=== PATIENT | male | born 1990 | race Caucasian/White ===

== ENCOUNTER 2016-05-17 08:11 | Emergency (ER) | payer MEDICARE ==
[~2016-05-17] VITALS: Ht 165.1 cm; Wt 61.2 kg
[2016-05-17 08:12] VITALS: BP 141/75; PULSE 103; RESP 16; TEMP 98.3; O2SAT 98
--- NOTE | 2016-05-17 08:12 | NUR ---
Pt placed in room 7 for MD starks for urinary symptoms. MD Cam at bedside.
[2016-05-17] MEDS ORDERED: NACL 0.9% 1,000 ML IV ONE (08:19)
[2016-05-17] MEDS ORDERED: ONDANSETRON HCL 4 MG/2 ML VIAL IVP ONE (08:30)
[2016-05-17] MEDS ORDERED: KETOROLAC TROMETHAMINE 30 MG VIAL IVP ONE (08:30)
[2016-05-17] MEDS ORDERED: PHEN95TA44 (08:35)
[2016-05-17 08:42] LABS: BASOPHILS # (AUTO) 0.1 K/uL (0.0-0.2); BASOPHILS % (AUTO) 1.1 % (0.0-2.0); EOSINOPHILS # (AUTO) 0.1 K/uL (0.0-0.4); EOSINOPHILS % (AUTO) 2.3 % (0.0-4.0); HEMATOCRIT 44.1 % (36-54); HEMOGLOBIN 15.3 g/dL (14.0-18.0); LYMPHOCYTES # (AUTO) 1.6 K/uL (1.0-5.5); LYMPHOCYTES % (AUTO) 34.2 % (20.5-51.5); MEAN CORPUSCULAR HEMOGLOBIN 33 pg (27-31); MEAN CORPUSCULAR HGB CONC 35 % (32-36); MEAN CORPUSCULAR VOLUME 94 fL (79.0-98.0); MONOCYTES # (AUTO) 0.4 K/uL (0.0-1.0); MONOCYTES % (AUTO) 8.7 % (1.7-9.3); NEUTROPHILS # (AUTO) 2.5 K/uL (1.8-7.7); NEUTROPHILS % (AUTO) 53.7 % (40.0-70.0); PLATELET COUNT (AUTO) 148 K/uL (130-430); WHITE BLOOD COUNT (AUTO) 4.7 K/uL (4.8-10.8)
[2016-05-17] MEDS ORDERED: IBUPROFEN 600 MG TABLET PO ONE (08:45)
[2016-05-17 08:53] LABS: CALCIUM 9.2 mg/dL (8.4-11.0); CREATININE 0.8 mg/dL (0.55-1.30)
[2016-05-17 08:54] LABS: BILIRUBIN,URINE NEGATIVE (NEGATIVE); BLOOD, URINE NEGATIVE (NEGATIVE); CLARITY/URINE CLEAR (CLEAR); COLOR,URINE YELLOW (YELLOW); GLUCOSE,URINE NEGATIVE (NEGATIVE); KETONES,URINE NEGATIVE (NEGATIVE); LEUKOCYTE ESTERASE ,URINE NEGATIVE (NEGATIVE); NITRITE, URINE POSITIVE (NEGATIVE); PH,URINE 6.5 (5.0-8.0); PROTEIN URINE NEGATIVE (NEGATIVE); UROBILINOGEN,URINE 0.2 (0.2-1.0)
[2016-05-17 08:57] LABS: ALBUMIN 4.3 g/dL (3.4-4.8); TOTAL BILIRUBIN 0.6 mg/dL (0.0-1.0); TOTAL PROTEIN, SERUM 7.5 g/dL (6.4-8.3)
--- NOTE | 2016-05-17 09:00 | NUR ---
Pt reassessed resting comfortably, no acute distress, no complaints at this time.
--- NOTE | 2016-05-17 09:28 | NUR ---
Patient given written and verbal discharge instructions and verbalizes understanding. ER MD discussed with patient the results and treatment provided. Given copies of tests performed in ER. Patient in stable condition. ID arm band removed. IV catheter removed intact and dressing applied, no active bleeding. Rx of Cipro given. Patient educated on pain management and to follow up with PMD. Pain Scale . Opportunity for questions provided and answered.
[2016-05-17 09:29] VITALS: BP 122/76; PULSE 70; RESP 16; TEMP 98; O2SAT 98
== END 2016-05-17 09:29 | disposition home or self-care (01) ==
LOC: SED 08:11
DX: N34.2 Other urethritis (principal)
CPT/HCPCS: 36415; 80053; 81003; 82150; 83690; 85025; 99284; J7030

== ENCOUNTER 2016-05-18 12:05 | Emergency (ER) | payer MEDICARE ==
[~2016-05-18] VITALS: Ht 162.6 cm; Wt 52.2 kg
[~2016-05-18 12:05] MED LIST: PHEN95TA44
[2016-05-18 12:14] VITALS: BP 151/77; PULSE 89; RESP 16; TEMP 97.8; O2SAT 99
--- NOTE | 2016-05-18 12:33 | NUR ---
placed in hallway. Dr. Cam examining pt
[2016-05-18 12:54] VITALS: BP 151/77; PULSE 89; RESP 16; TEMP 97.8; O2SAT 99
--- NOTE | 2016-05-18 12:54 | NUR ---
Patient given written and verbal discharge instructions and verbalizes understanding. ER MD discussed with patient the results and treatment provided. Given copies of tests performed in ER. Patient in stable condition. ID arm band removed. Rx of AUGMENTIN given. Patient educated on pain management and to follow up with PMD. Pain Scale 0/10 Opportunity for questions provided and answered.
== END 2016-05-18 12:53 | disposition home or self-care (01) ==
LOC: SED 12:05
DX: T36.8X5A Adverse effect of other systemic antibiotics, initial encounter (principal); R20.2 Paresthesia of skin; F41.9 Anxiety disorder, unspecified; Y92.89 Other specified places as the place of occurrence of the external cause
CPT/HCPCS: 99283

== ENCOUNTER 2017-10-12 14:55 | Emergency (ER) | payer MEDICARE ==
[~2017-10-12] VITALS: Ht 162.6 cm; Wt 54.4 kg
[2017-10-12 15:07] VITALS: BP_SYST 135
[2017-10-12] MEDS ORDERED: ALPRAZolam 0.25 MG TABLET PO ONE (16:15)
[2017-10-12] MEDS ORDERED: ALPRAZolam 0.25 MG TABLET ONE (18:25)
[2017-10-12] MEDS ORDERED: ONDANSETRON 4 MG ODT TAB PO ONE (18:30)
[2017-10-12 19:15] VITALS: BP_SYST 128
== END 2017-10-12 19:15 | disposition home or self-care (01) ==
LOC: SED 14:55
DX: F41.9 Anxiety disorder, unspecified (principal)
CPT/HCPCS: 93005; 99283; Q0162